=== PATIENT | male | born 1960 | race Caucasian/White ===

== ENCOUNTER 2021-12-23 00:20 | Day surgery (SDC) | payer OTHER, SELFPAY ==
[2021-08-19 14:41] VITALS: BMI 31.8
[2021-09-30 13:46] VITALS: BMI 32.0
[2021-12-12 15:03] VITALS: BMI 32.0
[2021-12-23 06:20] VITALS: BP 128/86; PULSE 96; RESP 19; TEMP 36.6; O2SAT 98; BMI 31.6
[2021-12-23] MEDS: LACTATED RINGERS 1,000 ML 150 ML IV CONT (06:22)
[2021-12-23 06:26] LABS: Glucose Point of Care 181 mg/dl (65-105)
--- NOTE | 2021-12-23 06:44 | WPDANESEPPF ---
Anes - Initial Pre Proc Eval Procedure: Operation Date: 12/23/21 07:30 Proposed Procedures p Screening Colonoscopy - Filipe Jaeger MD Date/Time: 12/23/21 06:44 Surgeon: Filipe Jaeger MD Pre Op Diagnosis: neoplasm screening Patient Data Age: 61 Gender: M Height: 1.83 m Weight: 105.7 kg Last Vital Signs Temp 36.6 C 12/23/21 06:20 Pulse 96 12/23/21 06:20 Resp 19 12/23/21 06:20 BP 128/86 12/23/21 06:20 Pulse Ox 98 12/23/21 06:20 Allergies Allergy/AdvReac Type Severity Reaction Status Date / Time No Known Allergies Allergy Verified 12/23/21 06:19 Home Medications Medication Instructions Recorded Confirmed Type empagliflozin 25 mg tablet 25 mg PO DAILY #90 tablet 09/12/20 12/23/21 Rx blood sugar diagnostic #100 each 11/23/20 12/23/21 Rx lancets 30 gauge #100 each 01/17/21 12/23/21 Rx aspirin 81 mg tablet,delayed 81 mg PO DAILY #90 tablet 07/10/21 12/23/21 Rx release lancing device #1 ea 07/10/21 12/23/21 Rx sildenafil 100 mg tablet 100 mg PO DAILY PRN #9 tablet 07/10/21 12/23/21 Rx glimepiride 2 mg tablet 2 mg PO QAM #90 tablet 07/17/21 12/23/21 Rx atorvastatin 20 mg tablet 20 mg PO DAILY #90 tablet 07/31/21 12/23/21 Rx metformin 500 mg tablet,extended 1,000 mg PO BID #360 tablet 08/13/21 12/23/21 Rx release 24hr lisinopril 40 mg tablet 40 mg PO DAILY #90 tablet 11/15/21 12/23/21 Rx Laboratory Tests 12/23/21 06:24 POC Capillary Glucose 181 mg/dl H mg/dl (65-105) Patient hx anesthesia problems: none Family hx anesthesia problems: none Results Review: All pre-operative results and documents have been reviewed as part of the pre-operative evaluation. [facility] Past Medical History Medical History Diabetes Erectile dysfunction Hypertension Obesity (BMI 30.0-34.9) DANNIELLE (obstructive sleep apnea) Smoker Surgical History Surgical History History of shoulder surgery right - 01/2019 History of tonsillectomy 03/2008 History of uvulopalatopharyngoplasty 03/2008 Family History Family History Other Carcinoma of colon Diabetes mellitus Social History Social History Smoking packs per day: 2 Smoking cigarettes per day: 40.0 Years smoked: 34 Smoking pack-years: 68.00 Smoking status: Current every day smoker Tobacco type: cigarettes Second hand tobacco smoke exposure: Yes Additional smoking assessment comments: consumes 2 packs of cigarettes daily Alcohol intake: current Drinks per week: 8 Alcohol use details: consumes 4-5 beers on weekends Substance use: current Substance use type: marijuana Last use: 08/15/21 Living arrangements: with family Gender identity (if verbalized by the patient): Male Spiritual care concerns: No Anes - Eval Final PreProcedure Day of Procedure 12/23/21 06:44 Patient weight: obese Heart: regular rate and rhythm Lungs: clear to auscultation Airway: Mallampati scale class II Neurological: alert and oriented Last oral intake: >/= 8 hours ASA classification: III Anesthetic plan: proceed Anesthesia type and monitoring: general GIVS and standard monitoring Results Review: All pre-operative results and documents have been reviewed as part of the pre-operative evaluation. Informed Consent: The patient's anesthetic plan and its attendant risks and benefits were discussed with the patient/family/POA. Questions were solicited and answers provided to the satisfaction of the patient/family/POA.
--- NOTE | 2021-12-23 07:22 | WPDGICN ---
Assessment and Plan Assessment and plan (1) Colon cancer screening: Code(s): Z12.11 - Encounter for screening for malignant neoplasm of colon Status: Acute Assessment and Plan: Patient presents today for screening colonoscopy. His been 10 years since last exam. He does have a history of adenomatous colon polyp removed from the colon 2010. Additionally both father and uncle have had colon polyps. Plan is for surveillance colonoscopy at 5 year intervals. Further recommendations may be given after endoscopy. GI Consult Note Consult date/time: 12/23/21 07:22 HPI: Tarik Coreas II is a 61 year old male Presents for screening colonoscopy. Patient's current weight appetite and bowel movements are normal. He denies abdominal pain. He has had no bleeding. Family history is significant his father and uncle both have had colon polyps. Patient himself underwent colonoscopy [address] Crowe that revealed benign adenomatous colon polyp. Patient presents today for follow-up colonoscopy. He reports his current weight appetite bowel movements are normal. Review of Systems Review of Systems: All systems reviewed & are unremarkable except as noted in HPI and below PMFSH Past Medical History Medical History Diabetes Erectile dysfunction Hypertension Obesity (BMI 30.0-34.9) DANNIELLE (obstructive sleep apnea) Smoker Surgical History Surgical History History of shoulder surgery right - 01/2019 History of tonsillectomy 03/2008 History of uvulopalatopharyngoplasty 03/2008 Family History Family History Other Carcinoma of colon Diabetes mellitus Social History Social History Smoking packs per day: 2 Smoking cigarettes per day: 40.0 Years smoked: 34 Smoking pack-years: 68.00 Smoking status: Current every day smoker Tobacco type: cigarettes Second hand tobacco smoke exposure: Yes Additional smoking assessment comments: consumes 2 packs of cigarettes daily Alcohol intake: current Drinks per week: 8 Alcohol use details: consumes 4-5 beers on weekends Substance use: current Substance use type: marijuana Last use: 08/15/21 Living arrangements: with family Gender identity (if verbalized by the patient): Male Spiritual care concerns: No Meds Home Medications and Allergies Home Medications Medication Instructions Recorded Confirmed Type empagliflozin 25 mg tablet 25 mg PO DAILY #90 tablet 09/12/20 12/23/21 Rx blood sugar diagnostic #100 each 11/23/20 12/23/21 Rx lancets 30 gauge #100 each 01/17/21 12/23/21 Rx aspirin 81 mg tablet,delayed 81 mg PO DAILY #90 tablet 07/10/21 12/23/21 Rx release lancing device #1 ea 07/10/21 12/23/21 Rx sildenafil 100 mg tablet 100 mg PO DAILY PRN #9 tablet 07/10/21 12/23/21 Rx glimepiride 2 mg tablet 2 mg PO QAM #90 tablet 07/17/21 12/23/21 Rx atorvastatin 20 mg tablet 20 mg PO DAILY #90 tablet 07/31/21 12/23/21 Rx metformin 500 mg tablet,extended 1,000 mg PO BID #360 tablet 08/13/21 12/23/21 Rx release 24hr lisinopril 40 mg tablet 40 mg PO DAILY #90 tablet 11/15/21 12/23/21 Rx Allergies Allergy/AdvReac Type Severity Reaction Status Date / Time No Known Allergies Allergy Verified 12/23/21 06:19 Vital Signs Vital Signs - 24 hr 12/23/21 06:20 Temperature 97.9 F Pulse Rate 96 Respiratory Rate 19 Blood Pressure 128/86 Pulse Oximetry 98 Exam Narrative: Physical exam reveals patient be alert. Vital signs stable. HEENT exam is unremarkable. Patient is anicteric. Lungs are clear to auscultation and percussion. Heart is without murmur or extra sounds. Abdominal exam bowel sounds are present soft nontender with no organomegaly. Digital external rectal exam is normal.
[2021-12-23] MEDS: SIMETHICONE ORAL SUSPENSION 20 MG/0.3 ML 30 ML BOTTLE 0.6 ML IRRIGATION (07:34)
[2021-12-23 07:42] VITALS: BP 118/82; PULSE 91; RESP 26; O2SAT 97
[2021-12-23 07:52] VITALS: BP 115/89; PULSE 86; RESP 23; O2SAT 98
[2021-12-23 08:02] VITALS: BP 120/89; PULSE 80; RESP 29; O2SAT 98
== END 2021-12-23 08:07 | disposition home or self-care (01) ==
PROVIDERS: PCP Family Medicine; Visit Provider Internal Medicine Gastroenterology
PROC: 0DJD8ZZ Inspection of Lower Intestinal Tract, Via Natural or Artificial Opening Endoscopic (ICD-10-PCS; CPT 45378; principal; 2021-12-23 07:30)
DX: Z12.11 Encounter for screening for malignant neoplasm of colon (principal); K62.1 Rectal polyp; Z83.71 Family history of colonic polyps; K64.8 Other hemorrhoids; E11.9 Type 2 diabetes mellitus without complications; I10 Essential (primary) hypertension; G47.33 Obstructive sleep apnea (adult) (pediatric); Z87.891 Personal history of nicotine dependence; F12.90 Cannabis use, unspecified, uncomplicated; Z79.84 Long term (current) use of oral hypoglycemic drugs; Z79.82 Long term (current) use of aspirin; E66.9 Obesity, unspecified; Z68.31 Body mass index [BMI] 31.0-31.9, adult
CPT/HCPCS: 45385; 82948; 88305; J2704; J7120

== ENCOUNTER → 2022-09-09 14:49 | Outpatient (CLI) | payer OTHER, SELFPAY ==
--- NOTE | ~2022-09-09 | CT_ITS ---
EXAMINATION: CT lung screening DATE: 09/09/2022 15:04 INDICATION: Personal history of tobacco dependence TECHNIQUE: Computed tomography (CT) of the chest was performed without intravenous contrast. The dose -length product was 299.36 mGy-cm. Automated exposure control and iterative reconstruction technique were employed. COMPARISON: CT dated 11/01/2004 FINDINGS: No thoracic lymphadenopathy. Heart size is normal. No significant pleural or pericardial ef fusion. The upper abdomen is unremarkable. There is a new 8 mm density left upper lobe nodule, image 37, possibly containing fat. There is a stable 4 mm pleural-based left lower lobe nodule. Moderate th oracic spondylosis with accentuated kyphosis. No focal lytic or blastic lesions. IMPRESSION: 1. Lung Rads 4 A, suspicious: Recommend follow-up [address] chest or pet/CT scan. Reviewed, dictated and finalized at location A. 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
== END ==
PROVIDERS: PCP Family Medicine; Visit Provider Physician Assistant Medical
DX: Z12.2 Encounter for screening for malignant neoplasm of respiratory organs (principal); R91.8 Other nonspecific abnormal finding of lung field; Z87.891 Personal history of nicotine dependence
CPT/HCPCS: 71271

== ENCOUNTER 2022-12-10 09:23 | Outpatient (CLI) | payer OTHER, SELFPAY ==
--- NOTE | ~2022-12-10 | CT_ITS ---
CT Scan of the Chest without Contrast: Clinical Indication: Solitary pulmonary nodule Technique: Contiguous sections were acquired throughout the chest without intravenous contrast. Dose reduction technique was used on this scan by utilizing automated exposure control and iterative recon struction technique. The dose-length product (DLP) was 254.55 mGy-cm. COMPARISON: 09/09/2022 Findings: There is no evidence of any significant mediastinal, hilar or axillary lymphadenopathy. The mediastin al soft tissues appear normal. There is no evidence of pleural or pericardial effusion. Stable 8 x 7 mm noncalcified left upper lobe pulmonary nodule. No new pulmonary abnormality seen. Images through the upper abdomen reveal no abnormalities. Impression: Stable 8 x 7 mm noncalcified left upper lobe pulmonary nodule. Follow-up CT in 9-12 months kitty emery Reviewed, dictated and finalized at [facility]. 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 Follow-up CT in 9-12 months recommended.
== END 2022-12-10 09:24 ==
PROVIDERS: PCP Family Medicine; Visit Provider Nurse Practitioner Family
DX: R91.1 Solitary pulmonary nodule (principal)
CPT/HCPCS: 71250

== ENCOUNTER 2023-08-17 13:34 | Outpatient (CLI) | payer OTHER, SELFPAY ==
--- NOTE | ~2023-08-17 | CT_ITS ---
CT Scan of the Chest without Contrast: Clinical Indication: Solitary pulmonary nodule Technique: Contiguous sections were acquired throughout the chest without intravenous contrast. Dose reduction technique was used on this scan by utilizing automated exposure control and iterative recon struction technique. The dose-length product (DLP) was 265.55 mGy-cm. COMPARISON: 12/10/2022 and 09/09/2022 Findings: There is no evidence of any significant mediastinal, hilar or axillary lymphadenopathy. The mediastin al soft tissues appear normal. There is no evidence of pleural or pericardial effusion. Stable 9 mm left upper lobe pulmonary nodule present. Lungs are otherwise clear. Images through the upper abdomen reveal no abnormalities. Impression: Stable 9 mm left upper lobe pulmonary nodule. Reviewed, dictated and finalized at location . 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
== END 2023-08-17 13:35 | disposition home or self-care (01) ==
PROVIDERS: PCP Family Medicine; Visit Provider Nurse Practitioner Family
DX: R91.1 Solitary pulmonary nodule (principal)
CPT/HCPCS: 71250

== ENCOUNTER 2024-04-25 14:50 | Outpatient (CLI) | payer OTHER, SELFPAY ==
--- NOTE | ~2024-04-25 | XR_ITS ---
EXAMINATION: XR chest 2V Exam Date/Time: 04/25/2024 14:53 CDT HISTORY: R06.00 - Dyspnea, unspecified Comparison: 07/10/2015. RESULT: Lines, tubes, and devices: None. Lungs and pleura: Right lower lung reticulonodular opacities probably localized to the right lower l obe in the lateral view. Cardiomediastinal silhouette: Stable. Other: No acute osseous or upper abdominal finding. IMPRESSION: Pulmonary opacities may represent atypical infection, aspiration, and small airways disease. Reviewed, dictated and finalized at location K. IMPRESSION: Pulmonary opacities may represent atypical infection, aspiration, and small air ways disease.
== END 2024-04-25 14:51 ==
LOC: MICIMG 14:51
PROVIDERS: PCP Family Medicine; Visit Provider Student in an Organized Health Care Education/Training Program
DX: R05.8 Other specified cough (principal); R06.00 Dyspnea, unspecified; R91.8 Other nonspecific abnormal finding of lung field
CPT/HCPCS: 71046

== ENCOUNTER 2025-08-18 15:58 | Outpatient (CLI) | payer OTHER, SELFPAY ==
--- NOTE | ~2025-08-18 | CT_ITS ---
EXAMINATION:CT lung screening DATE: 08/18/2025 19:57 INDICATION: Personal history of nicotine dependence. TECHNIQUE: Computed tomography (CT) of the chest was performed without intravenous contrast. Automated exposure control and iterative reconstruction technique were employed. The dose-length product (DLP) was 214.44 mGy-cm. COMPARISON: Chest CT 08/16/2024 FINDINGS: There is mild emphysema. There is mild atelectasis bilaterally. There is a stable 9 mm nodule in left upper lobe. No pleural effusion. The heart size is normal. No pericardial effusion. There is diffuse hepatic steatosis. There is mild chronic anterior wedging of multiple thoracic vertebral bodies. There is mild thoracic spondylosis and severe cervical spondylosis. IMPRESSION: 1. Lung-RADS category 2: Benign appearance or behavior. Continue annual screening with noncontrast low-dose chest CT in 12 months. Reviewed, dictated and finalized at location E. 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 Lung-RADS category 2: Benign appearance or behavior. Continue annual screeni ng with noncontrast low-dose chest CT in 12 months.
--- OUTSIDE RECORDS SUMMARY | 2025-08-18 16:06 | XMS_ITS | Clinical Summary ---
Author Organization [facility] Address [address] [place] [address] Care Team Providers Care Card Tender Name Role Phone Mariah Powell MD Primary Care Provider [phone] Source Comments [facility],non-owned Affiliates and Associated Physician Practices is amultiple site organization consisting of ambulatory clinics and hospital sitesin [place], [place], [place] and [place]. This disclosure is being madepursuant to the Care Everywhere program and may not contain all information available regarding this patient. Last updated 18.[facility] Allergies No known active allergies Medications * Be aware that medications may not be up to date on this document. Alwaysverify current medications with the patient. hydrocodone-acet aminophen (VICODIN) 5-500 MG tablet Take 1-2 Tabs by mouth 4 times daily as needed for Pain. 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 Gender Identity Not on file Sexual Orientation Not on file Last Filed Vital Signs Vital Sign Reading Time Taken Comments Blood Pressure 136/85 06/20/2010 11:35 AM CDT Pulse 80 06/20/2010 11:35 AM CDT Temperature 36.7 C (98 F) 06/20/2010 11:35 AM CDT Respiratory Rate 16 06/20/2010 10:44 AM CDT Oxygen Saturation 96% 06/20/2010 11:35 AM CDT Inhaled Oxygen Concentration - - Weight 108.9 kg (240 lb) 06/20/2010 6:34 AM CDT Height 182.9 cm (6') 06/20/2010 6:34 AM CDT Body Mass Index 32.55 06/20/2010 6:34 AM CDT Plan of Treatment Health Maintenance Due Date Last Done Comments COLOGUARD (AGES 45-75) - COL ON CA SCREENING 1962 COLON MONITORING 1962 COLONOSCOPY - COLON CA SCREENING 1962 CT COLONOGRAPHY - COLON CA SCREENING 1962 Colorectal Cancer Screening 1962 FIT - COLON CA SCREENING 1962 FLEX SIG - COLON CA SCREENING 1962 LIPID TESTING 1962 HIV SCREENING 1977 HEPATITIS C SCREENING 05/23/1980 DTAP/TDAP/TD VACCINES (1 - Tdap) 1981 PNEUMOCOCCAL VACCINE 50+ (1 of 1 - PCV) 2012 ZOSTER VACCINE (1 of 2) 2012 DEPRESSION SCREENING 10/12/2024 COVID-19 VACCINE (1 - 2023-2 5 season) 2025 INFLUENZA VACCINE (#1) 2025 Respiratory Syncytial Virus (RSV) Vaccine Pt: or over 60 yrs (1 - 1-dose 75+ series) 2037 HEPATITIS B VACCINE Aged Out No longe r eligible based on patient's age to complete this topic HIB VACCINE Aged Out No longer eligi ble based on patient's age to complete this topic HPV VACCINE Aged Out No longer eligi ble based on patient's age to complete this topic MENINGOCOCCAL (Group B) VACC INE SHARED DECISION-MAKING Aged Out No longer eligibl e based on patient's age to complete this topic MENINGOCOCCAL GROUPS A/C/Y/W VACCINE Aged Out No longer eligible b ased on patient's age to complete this topic Insurance [facility] [place] Address: [facility] [id number] [place] [address] Care Teams Card Tender Relationship Specialty Start Date End Date Mariah Powell MD [address] [place] [address] PCP - General 12/24/21
== END 2025-08-18 15:59 | disposition home or self-care (01) ==
PROVIDERS: PCP Family Medicine Adolescent Medicine; Visit Provider Student in an Organized Health Care Education/Training Program
DX: Z12.2 Encounter for screening for malignant neoplasm of respiratory organs (principal); Z87.891 Personal history of nicotine dependence
CPT/HCPCS: 71271

== ENCOUNTER 2025-08-28 08:02 | Outpatient (CLI) | payer OTHER, SELFPAY ==
--- NOTE | ~2025-08-28 | US_ITS ---
ULTRASOUND ABDOMEN LIMITED (RIGHT UPPER QUADRANT) Clinical History: R74.8 - Abnormal levels of other serum enzymes Comparison: None Technique: Right upper quadrant sonography Findings: Liver: Enlarged. Echogenic. No intrahepatic biliary ductal dilatation. Normal hepatopedal flow main portal vein. Common Duct: Normal caliber. 4 mm. Gallbladder: No stones. No wall thickening. No pericholecystic fluid. Small probable polyp. Pancreas: Unremarkable. Right kidney: Unremarkable. Retrohepatic IVC: Unremarkable. IMPRESSION: 1. Hepatic steatosis and/or hepatocellular disease. 2. No acute abnormality. Reviewed, dictated and finalized at location R. 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
== END 2025-08-28 08:03 | disposition home or self-care (01) ==
PROVIDERS: PCP Student in an Organized Health Care Education/Training Program; Visit Provider Student in an Organized Health Care Education/Training Program
DX: R74.8 Abnormal levels of other serum enzymes (principal); K76.0 Fatty (change of) liver, not elsewhere classified
CPT/HCPCS: 76705